=== PATIENT | female | born 1945 | race Two or more races ===

== ENCOUNTER 2019-05-05 10:45 | Inpatient (IN) | payer OTHER ==
[~2019-05-05] VITALS: Ht 160 cm; Wt 108.9 kg
[2019-05-05] MEDS ORDERED: EVISTA60 MG (14:31)
[2019-05-05] MEDS ORDERED: LEVOTHYROXINE25 MCG (14:31)
[2019-05-12] MEDS ORDERED: XARELTO10 MG PO (09:12)
[2019-05-12] MEDS ORDERED: OXYC1TAB9 PO (09:12)
[2019-05-12] MEDS ORDERED: INTEGRA PLUS C1 EACH PO (09:12)
== END 2019-05-12 13:37 | DRG 470 ==
LOC: O/R 10:45 → SURH 05-09 06:55 → O/R 05-09 06:55 → SURH 05-09 13:52
PROVIDERS: ADMIT Orthopaedic Surgery Sports Medicine
PROC: 0SRC0J9 Replacement of Right Knee Joint with Synthetic Substitute, Cemented, Open Approach (ICD-10-PCS; principal; 2019-05-09 07:00)
DX: M17.11 Unilateral primary osteoarthritis, right knee (principal)

== ENCOUNTER 2021-05-21 08:15 | Inpatient (IN) | payer OTHER ==
[~2021-05-21] VITALS: Ht 160 cm; Wt 108.0 kg
[~2021-05-21 08:15] MED LIST: EVISTA60 MG; INTEGRA PLUS C1 EACH PO; LEVOTHYROXINE25 MCG; OXYC1TAB9 PO; XARELTO10 MG PO
[2021-05-21] MEDS ORDERED: VALSARTAN-HCTZ1 EAC4 PO (09:56)
[2021-05-21] MEDS ORDERED: SYNTHROID88 MCG PO (09:56)
[2021-05-21] MEDS ORDERED: OMEPRAZOLE PO (09:57)
[2021-05-21] MEDS ORDERED: NASAL MIST126 ML (09:57)
[2021-05-24] MEDS ORDERED: DICLOFENAC SODI75 MG (08:34)
[2021-05-24] MEDS ORDERED: OMEPRAZOLE40 MG (08:34)
[2021-05-24] MEDS ORDERED: ALENDRONATE SOD70 MG (08:34)
[2021-05-24] MEDS ORDERED: OFLOXACIN5 ML (08:35)
== END 2021-05-25 12:22 | disposition home or self-care (01) | DRG 741 ==
LOC: OB/GYN 05-23 05:45 → O/R 05-23 05:45 → SURH 05-23 07:00 → OB/GYN 05-23 11:53
PROVIDERS: ADMIT Specialist; ATTEND Specialist
PROC: 0UT24ZZ Resection of Bilateral Ovaries, Percutaneous Endoscopic Approach (ICD-10-PCS; 2021-05-23)
PROC: 0UT74ZZ Resection of Bilateral Fallopian Tubes, Percutaneous Endoscopic Approach (ICD-10-PCS; 2021-05-23)
PROC: 07BC4ZZ Excision of Pelvis Lymphatic, Percutaneous Endoscopic Approach (ICD-10-PCS; 2021-05-23)
PROC: 0UT94ZZ Resection of Uterus, Percutaneous Endoscopic Approach (ICD-10-PCS; principal; 2021-05-23 07:00)
DX: C54.1 Malignant neoplasm of endometrium (principal); N80.0 Endometriosis of uterus; R59.9 Enlarged lymph nodes, unspecified; I10 Essential (primary) hypertension; N95.0 Postmenopausal bleeding